=== PATIENT | female | born 1980 | race Two or more races ===

== ENCOUNTER 2022-07-04 17:48 | Emergency (ER) | payer OTHER ==
[~2022-07-04] VITALS: Ht 167.6 cm; Wt 70.0 kg
[2022-07-04 18:00] VITALS: BP 129/90
== END 2022-07-04 19:39 | disposition left against medical advice (07) ==
LOC: ER 17:48
DX: S90.561A Insect bite (nonvenomous), right ankle, initial encounter (principal); Z53.21 Procedure and treatment not carried out due to patient leaving prior to being seen by health care provider; W57.XXXA Bitten or stung by nonvenomous insect and other nonvenomous arthropods, initial encounter; Y93.89 Activity, other specified; Y92.89 Other specified places as the place of occurrence of the external cause; Y99.8 Other external cause status